=== PATIENT | male | born 1955 | race Caucasian/White ===

== ENCOUNTER 2017-09-15 15:10 | Outpatient (CLI) | payer OTHER, MEDICARE | END 2017-09-15 15:11 | disposition critical access hospital (66) | LOC: EMS 15:10 | PROVIDERS: ATTEND Surgery | DX: R53.1 Weakness (principal) | CPT/HCPCS: A0425; A0429 ==

== ENCOUNTER 2017-09-15 15:45 | Observation (INO) | payer OTHER, MEDICARE ==
--- NOTE | 2017-09-15 16:19 | CT Report ---
EXAM: CT HEAD EXAM DATE: 09/15/2017 04:01 PM. CLINICAL HISTORY: Stroke like symptoms since last night. Right-sided weakness this morning. COMPARISON: None. TECHNIQUE: Multiaxial CT images were obtained from the foramen magnum to the vertex. IV contrast: Non e. Reformats: Coronal. In accordance with CT protocol optimization, one or more of the following dose reduction techniques w ere utilized for this exam: automated exposure control, adjustment of mA and/or KV based on patient s ize, or use of iterative reconstructive technique. FINDINGS: Parenchyma: No intraparenchymal hemorrhage. Large area of inferior right frontal lobe encephalomalaci a with upper right frontal lobe white matter low density. No evidence of mass, midline shift, or CT f indings of acute infarction. Scanlon-white differentiation is distinct. Mild chronic microangiopathic wh ite matter changes are evident. Extraaxial Spaces: Normal for age. No subdural or epidural collections identified. Ventricles: The ventricles and cortical sulci are prominent, consistent with age-related tissue loss. Sinuses and orbits: Extensive opacity of the paranasal sinuses, sparing the left frontal and left max illary sinuses. The mastoids are clear. Bones: Right frontal craniotomy defect noted. Other: None. IMPRESSION: 1. Generalized age-related cortical atrophic changes without evidence of acute intracranial abnormali ty, noting right frontal craniotomy with extensive subjacent right frontal lobe encephalomalacia and white matter low-density. 2. Extensive sinusitis. [facility] The call report notification system was initiated by Dr. Montrell Robison at 16:12 hrs on 09/15/17. The above findings were discussed with Dr. Decker by Dr. Montrell Robison at 16:15 hrs on 09/15/17. Referring Provider Line: [phone] SITE ID: [id number]
[2017-09-15 16:44] LABS: BASOPHILS % (AUTO) 0.5 %; EOSINOPHILS # (AUTO) 0.1 10^3/uL (0.0-0.7); HCT - HEMATOCRIT 30.1 % (42.0-52.0); LYMPHOCYTES # (AUTO) 1.2 10^3/uL (1.5-3.5); LYMPHOCYTES % (AUTO) 39.3 %; MEAN CORPUSCULAR HEMOGLOBIN 20.7 pg (27.0-31.0); MEAN PLATELET VOLUME 8.2 fL (7.4-11.4); MONOCYTES # (AUTO) 0.2 10^3/uL (0.0-1.0); MONOCYTES % (AUTO) 7.5 %; NEUTROPHILS # (AUTO) 1.5 10^3/uL (1.5-6.6); NEUTROPHILS % (AUTO) 48.7 %; RED BLOOD COUNT 4.36 10^6/uL (4.70-6.10); RED CELL DISTRIBUTION WIDTH 24.9 % (12.0-15.0); UNCORRECTED WHITE BLOOD COUNT 3.2 x10^3/uL; WHITE BLOOD COUNT 3.2 x10^3/uL (4.8-10.8)
[2017-09-15 16:45] LABS: INR 1.4 (0.8-1.2); PT - PROTHROMBIN TIME 16.1 secs (9.9-12.6)
[2017-09-15 16:46] LABS: CALCIUM 8.2 mg/dL (8.5-10.3); CREATININE 0.9 mg/dL (0.6-1.2); POTASSIUM 2.9 mmol/L (3.5-5.0)
[2017-09-15 17:03] LABS: PLATELET ESTIMATE, MANUAL DECREASED (<130,000) (NORMAL); PLATELET MORPHOLOGY 1+ LARGE PLATELETS (NORMAL)
--- NOTE | 2017-09-15 17:09 | ED Physician Documentation ---
History of Present Illness - Stated complaint Stated Complaint: POSS CVA - Chief complaint Chief Complaint: Neuro - Additonal information Additional information: hx from pt 62 male hx R brain surgery for tumor and a L CVA declining X 6 months jaime confusion and incontinence states seen and evaluated an [facility] for same awoke today with R sided leg weakness no fall denies SÁNCHEZ neck pain CP AP NVD no fever cough NVD called [facility] and instructed to come to [facility] ED - trying to get records Review of Systems Constitutional: denies: Fever Cardiac: denies: Chest pain / pressure, Palpitations Respiratory: denies: Dyspnea, Cough GI: denies: Abdominal Pain, Nausea, Vomiting Neurologic: reports: Focal weakness (RLE), Difficulty speaking. denies: Headache, Head injury Endocrine: denies: Easy bruising / bleeding Immunocompromised: denies: Immunocompromised PD PAST MEDICAL HISTORY - Present Medications Home Medications: Ambulatory Orders Medication Instructions Recorded Confirmed Ascorbic Acid [Vitamin C] 1 tab PO DAILY 09/15/17 09/15/17 Aspirin Chewable [St Gonzalez 81 mg PO DAILY 09/15/17 09/15/17 Aspirin] Carvedilol 12.5 mg PO BID 09/15/17 09/15/17 Ferrous Sulfate 325 mg PO DAILY 09/15/17 09/15/17 Furosemide 40 mg PO DAILY 09/15/17 09/15/17 Hydrochlorothiazide 12.5 mg PO DAILY 09/15/17 09/15/17 Lansoprazole 30 mg PO DAILY 09/15/17 09/15/17 - Allergies Allergies/Adverse Reactions: Allergies Allergy/AdvReac Type Severity Reaction Status Date / Time Sulfa (Sulfonamide Allergy Unknown Verified 09/15/17 15:52 Antibiotics) PD ED PE NORMAL - Vitals Vital signs reviewed: Yes - General General: Other (alert interactive seems confused) - HEENT HEENT: Atraumatic, PERRL - Neck Neck: Supple, no meningeal sign - Cardiac Cardiac: RRR - Respiratory Respiratory: No respiratory distress, Clear bilaterally - Derm Derm: Normal color - Neuro Neuro: nurse reviewer 2-12 intact, No motor deficit, No sensory deficit, Normal speech, Other (at time of my eval NIHSS 0). No: Alert and oriented X 3 Eye Opening: Spontaneous Motor: Obeys Commands Verbal: Confused GCS Score: 14 Results - Vitals Vitals: Vital Signs - 24 hr 09/15/17 09/15/17 09/15/17 15:47 17:12 17:53 Temperature 36.2 C L 36.9 C Heart Rate 68 73 73 Respiratory 16 16 12 Rate Blood Pressure 132/76 H 113/62 105/51 L O2 Saturation 97 100 98 Oxygen O2 Source Room air - EKG (time done) 1611 Rate: Rate (enter#) (64) Rhythm: NSR Intervals: Prolonged QT (borderline) Ischemia: Non specific changes (flat T waves inf) - Labs Labs: Laboratory Tests 09/15/17 09/15/17 09/15/17 16:32 16:32 16:32 WBC 3.2 L RBC 4.36 L Hgb 9.0 L Hct 30.1 L MCV 69.0 L MCH 20.7 L MCHC 30.0 L RDW 24.9 H Plt Count 45 L MPV 8.2 Neut # 1.5 Lymph # 1.2 L [place] # 0.2 Eos # 0.1 Baso # 0.0 Absolute Nucleated RBC 0.00 Nucleated RBC % 0.0 Manual Slide Review Indicated Platelet Estimate DECREASED (<130,000) Platelet Morphology 1+ LARGE PLATELETS RBC Morph Micro Appear 1+ BASO STIPPLING PT 16.1 H INR 1.4 H Sodium 136 Potassium 2.9 L Chloride 103 Carbon Dioxide 27 Anion Gap 6.0 BUN 16 Creatinine 0.9 Estimated GFR (MDRD) 86 L Glucose 141 H Calcium 8.2 L - Rads (name of study) CTH Radiology: See rad report (prior R crani, no new infarct or bleed seen, extensive sinusitis) PD MEDICAL DECISION MAKING - ED course ED course: reviewed records from [facility] and MRI this summer showed no changes or new tumor pt with 2 processes it seems 1) gradual decline, being evaluated by his neuro 2 ) acute TIA sx today neg NIHSS and CT at this time also anemic, not new per [facility] records, and low K which is new and was repleted will admit for serial neuro exam and MRI / MRA echo etc paged hospitalist at 1810 Departure - Departure Disposition: ED Place in Observation Clinical Impression: TIA (transient ischemic attack) Qualifiers: Transient cerebral ischemia type: unspecified Qualified Code(s): G45.9 - Transient cerebral ischemic attack, unspecified Condition: Fair Discharge Date/Time: 09/15/17 20:02
[2017-09-15] MEDS ORDERED: POTASSIUM CHLORIDE 20 MEQ TABLET PO STA (17:33)
[2017-09-15] MEDS ORDERED: POTASSIUM CHLORIDE 20 MEQ TABLET PO ONE (17:55)
[2017-09-15] MEDS ORDERED: PROMETHAZINE 25 MG/1 ML VIAL IM PRN (19:38)
[2017-09-15] MEDS ORDERED: oxyCODONE 5 MG TABLET PO PRN ×2 (19:38)
[2017-09-15] MEDS ORDERED: PROCHLORPERAZINE 10 MG/2 ML VIAL IVP PRN (19:38)
[2017-09-15] MEDS ORDERED: SODIUM CHLORIDE FLUSH 0.9% 10 ML SYRINGE IVP PRN (19:38)
[2017-09-15] MEDS ORDERED: ACETAMINOPHEN 325 MG TABLET PO PRN (19:38)
[2017-09-15] MEDS ORDERED: ONDANSETRON 4 MG/2 ML VIAL IVP PRN (19:38)
[2017-09-15] MEDS ORDERED: ZOLPIDEM 5 MG TABLET PO PRN (19:38)
[2017-09-15] MEDS ORDERED: SODIUM CHLORIDE 0.9% 1,000 ML IV SCH (20:00)
[2017-09-15] MEDS: SODIUM CHLORIDE FLUSH 0.9% 10 ML SYRINGE IVP SCH (22:02)
[2017-09-15] MEDS: ATORVASTATIN 40 MG TABLET PO SCH (22:02)
[2017-09-15] MEDS: CARVEDILOL 12.5 MG TABLET PO SCH (22:02)
--- NOTE | 2017-09-16 01:37 | HISTORY & PHYSICAL EXAMINATION ---
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 The patient states that when he woke up this morning he felt as though his right leg and left arm were weaker than normal. The patient states that he does routine physical therapy exercises daily and today he states that he could only get through about half of them because he felt so weak. The patient states that he had difficulty lifting his right leg and difficulty lifting his left arm. The patient states that the strength in his legs and arms slowly improved throughout the day and by the time his called the ambulance he was actually able to get himself into the ambulance. The patient states that he did have similar symptoms a few months ago that did resolve and that he was evaluated at an outside hospital and thought to have had a TIA. The patient lives with his and it appears to have been deteriorating over the last several months. The patient was recently seen at [facility] on 08/10/2017 and at that time was having failure to thrive and of poor quality of life. It was discussed with him and his at that time of the idea of hospice and they were interested in with dignity. According to the patient's the patient has had a continued decline over the last several months. The patient is incontinent of urine, sleeps most of the day and night and often is awake at night more than during the day. He has no appetite he only eats if he is fed. The patient has no motivation to exercise and has began to have hard time reading due to his cognitive function and does not seem interested in exercise or watching TV. The patient was previously getting home PT 3 times a week but has since been discharged and now just does exercises himself at home. The patient does require assistance for showering. The patient was having frequent falls at home but is now better with a walker. The patient continues to have poor appetite and weight loss. The patient has poor quality of life and his is having more and more difficult of the time taking care of him. The patient otherwise denies any headache, blurred vision, runny nose, sore throat, nasal congestion, fevers, chills, neck pain, difficulty swallowing, chest pain, shortness of air, orthopnea, PND, increased lower extremity swelling , abdominal pain, nausea, vomiting, diarrhea, constipation, joint pain, joint swelling, muscle aches, muscle stiffness, back pain, neck stiffness, or any focal neurologic deficits. On presentation to the emergency department the patient was afebrile and vital signs are within normal limits. The patient's weakness had completely resolved. The patient underwent routine lab work which did reveal a slight leukopenia, thrombocytopenia and hypokalemia. The patient also had an anemia all of which appear to be chronic from his previous hospitalization at [facility]. The patient underwent a CT of his head which revealed generalized age- related cortical atrophic changes without evidence of acute intracranial abnormality, noting right frontal craniotomy with extensive subjacent right frontal lobe encephalomalacia and white matter low density with extensive sinusitis. The patient was placed in observation for further imaging and monitoring for possible TIA. History - Past Medical History Cardiovascular: reports: Hypertension Respiratory: reports: Pneumonia, CPAP use, Other (Obstructive sleep apnea) Neuro: reports: CVA, Other (Malignant neoplasm of the frontal lobe status post craniotomy, radiation encephalopathy) Endocrine/Autoimmune: reports: None GI: reports: Hepatitis (Hepatitis C), Cirrhosis (Liver cirrhosis secondary to hepatitis C and alcohol abuse with esophageal varices and portal hypertension) Psych: reports: None Musculoskeletal: reports: None Derm: reports: None Other Past Medical History: Anemia, Alcohol abuse, hyperlipidemia, impaired fasting glucose, lacunar stroke, depression, radiation encephalopathy, thrombocytopenia, cognitive impairment, degenerative joint disease, metabolic syndrome, urinary incontinence, tobacco abuse - Past Surgical History Neuro: reports: Craniotomy (Frontal lobe), Other - Family & Social History Family History: Mother: Cancer (Lung-mom Stomach-dad), Hypertension (PGF), Father: Cancer, Hypertension, Sister: Hypertension, Mental Illness, Brother: Asthma, Diabetes, Type 2 (PGF), Hypertension, Other family: Diabetes, Type 2, Hypertension Living arrangement: At home Living Situation: With spouse/s.o. Social History Notes: Patient lives with his . He is originally from [place] but has been living in [place], [place] on [address] for the past 30 years. Patient does not have any children. 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 The patient was part of a lot of major building projects in [place] and [place]. The patient is currently retired. He does smoke 1 pack per day and been smoking for the past 43 years. The patient does drink alcohol he states that he drinks about 4 shots of bourbon every night but has cut down as he was previously a heavy drinker. The patient denies any illicit drug use. The patient uses a walker at home and until recently was getting physical therapy 3 times a week. The patient does have history of falls but has been more stable since the physical therapy. The patient is having failure to thrive at home and his is having an incredibly difficult time caring for him. The patient and his have recently been considering the idea of palliative care or hospice as the patient's quality of life has been deteriorating over the last few months. - Substance History Use: Uses substance without health or social issues: Tobacco Abuse: Recurrent use of substance despite neg consequences: Alcohol - POLST Patient has POLST: No POLST Status: DNR Meds/Allgy - Home Medications Home Medications: Ambulatory Orders Medication Instructions Recorded Confirmed Ascorbic Acid [Vitamin C] 1 tab PO DAILY 09/15/17 09/15/17 Aspirin Chewable [St Gonzalez 81 mg PO DAILY 09/15/17 09/15/17 Aspirin] Carvedilol 12.5 mg PO BID 09/15/17 09/15/17 Ferrous Sulfate 325 mg PO DAILY 09/15/17 09/15/17 Furosemide 40 mg PO DAILY 09/15/17 09/15/17 Hydrochlorothiazide 12.5 mg PO DAILY 09/15/17 09/15/17 Lansoprazole 30 mg PO DAILY 09/15/17 09/15/17 - Allergies Allergies/Adverse Reactions: Allergies Allergy/AdvReac Type Severity Reaction Status Date / Time Sulfa (Sulfonamide Allergy Unknown Verified 09/15/17 15:52 Antibiotics) Review of Systems - Other Findings Other Findings: A comprehensive review of systems was performed the pertinent positives and negatives are stated above in the HPI and the remainder of the review of systems is negative. Exam - Vital Signs Reviewed Vital Signs: Yes Vital Signs: Vital Signs x48h Temp Pulse Resp BP Pulse Ox 09/16/17 00:05 36.4 C L 61 18 133/69 H 95 09/15/17 20:47 36.4 C L 66 20 138/51 H 100 - Physical Exam General Appearance: positive: No acute distress, Alert, Other (Appears to have some difficulty with memory especially of time and dates. Appears to have some cognitive decline) Eyes Bilateral: positive: Normal inspection, PERRL, EOMI, No lid inflammation, Conjunctivae nml, No scleral icterus ENT: positive: ENT inspection nml, Pharynx nml, No signs of dehydration. negative: Purulent nasal drainage, Pharyngeal erythema Neck: positive: Nml inspection, Thyroid nml, No JVD, Trachea midline. negative : Thyromegaly, Lymphadenopathy (R), Lymphadenopathy (L), Carotid bruit, Tracheal deviation Respiratory: positive: Chest non-tender, No respiratory distress, Breath sounds nml. negative: Wheezes, Rales, Rhonchi Cardiovascular: positive: Regular rate & rhythm, No murmur, No gallop Peripheral Pulses: positive: 2+ Abdomen: positive: Non-tender, No organomegaly, Nml bowel sounds, Other ( Distended abdomen). negative: Tenderness, Guarding, Rebound Back: positive: Nml inspection. negative: CVA tenderness (R), CVA tenderness (L ) Skin: positive: Color nml, No rash. negative: Cyanosis, Diaphoresis, Pallor Extremities: positive: Non-tender, Full ROM, Nml appearance, No pedal edema Neurologic/Psychiatric: positive: Oriented x3, CN's nml (2-12), Motor nml, Sensation nml, Mood/affect nml Conclusion/Plan - Problem List (1) TIA (transient ischemic attack) Conclusion/Plan: Patient presented with left arm and right leg weakness which had resolved by the time the patient presents to the emergency department. Patient's symptoms started earlier in the morning and progressed throughout the day while he was trying to do exercises at home. 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 The patient's CT head in the emergency department was negative but is being placed in observation for further imaging and neuro checks. Plan: Aspirin Lipitor MRA head and neck MRI brain Echo Lipid profile Tele [facility] Neurochecks PT and OT eval Qualifiers: Transient cerebral ischemia type: unspecified Qualified Code(s): G45.9 - Transient cerebral ischemic attack, unspecified (2) Hypokalemia Conclusion/Plan: Patient's potassium on presentation is 2.9. The patient does have chronic hypokalemia and is on Lasix at home. The patient is not on any potassium supplements along with the Lasix. The patient will be placed on potassium via IV and his Lasix will be held. We will continue to monitor patient's potassium (3) LINDA on CPAP Conclusion/Plan: Patient does have history of sleep apnea and is on CPAP at home Patient will be continued on home CPAP machine (4) Hypertension Conclusion/Plan: Patient has history of hypertension and is on antihypertensive medication at home. Patient's blood pressure was stable on presentation. Patient be continued on his home antihypertensives Patient will have his blood pressure monitored while he is hospitalized. We will allow for permissive hypertension as patient may have had a TIA. Qualifiers: Hypertension type: essential hypertension Qualified Code(s): I10 - Essential (primary) hypertension (5) Liver cirrhosis Conclusion/Plan: Patient has history of liver cirrhosis with esophageal varices and portal hypertension. The etiology of his liver cirrhosis is alcohol abuse and hepatitis C. The patient is not a transplant candidate given his alcohol abuse and otherwise poor quality of life due to his malignant neoplasm of the brain status post craniotomy with radiation encephalopathy. The patient has been having failure to thrive over the last several months and is considering palliative care or hospice options with his . Plan: We will refer the patient to palliative care and have Stephany LUNA see the patient in the hospital if possible otherwise patient will need to be seen as an outpatient. (6) Tobacco abuse Conclusion/Plan: Patient continues to smoke despite history of cancer. Patient smokes 1 pack a day and has been smoking since the age of 19. Plan: Patient was counseled on need to quit smoking and has been given a nicotine patch while he is hospitalized. (7) Failure to thrive Conclusion/Plan: Patient has been having failure to thrive over the last several months. He has had decreased appetite and has been losing weight. The patient also has increasing confusion due to his radiation encephalopathy and likely also has some component of hepatic encephalopathy given his liver cirrhosis. The patient does have terminal diagnosis in his liver cirrhosis we do not have LFTs to calculate out a meld to see if he does have a life expectancy of less than 6 months but the patient definitely would benefit from palliative care consult and likely will need hospice in the future. The patient does want to be DNR and has considered with dignity. Qualifiers: Failure to thrive age range: in adult Qualified Code(s): R62.7 - Adult failure to thrive - Lab Results Lab results reviewed: Yes Fish Bones: 09/15/17 16:32 09/15/17 16:32 Other Lab Results: Laboratory Results WBC 3.2 x10^3/uL (4.8-10.8) L 09/15/17 16:32 RBC 4.36 10^6/uL (4.70-6.10) L 09/15/17 16:32 Hgb 9.0 g/dL (14.0-18.0) L 09/15/17 16: Hct 30.1 % (42.0-52.0) L 09/15/17 16: MCV 69.0 fL (80.0-94.0) L 09/15/17 16: MCH 20.7 pg (27.0-31.0) L 09/15/17 16:32 MCHC 30.0 g/dL (32.0-36.0) L 09/15/17 16:32 RDW 24.9 % (12.0-15.0) H 09/15/17 16:32 Plt Count 45 10^3/uL (130-450) L 09/15/17 16:32 MPV 8.2 fL (7.4-11.4) 09/15/17 16:32 Neut # 1.5 10^3/uL (1.5-6.6) 09/15/17 16:32 Lymph # 1.2 10^3/uL (1.5-3.5) L 09/15/17 16:32 [place] # 0.2 10^3/uL (0.0-1.0) 09/15/17 16:32 Eos # 0.1 10^3/uL (0.0-0.7) 09/15/17 16:32 Baso # 0.0 10^3/uL (0.0-0.1) 09/15/17 16:32 Absolute Nucleated RBC 0.00 x10^3/uL 09/15/17 16:32 Nucleated RBC % 0.0 /100WBC 09/15/17 16:32 Manual Slide Review Indicated 09/15/17 16:32 Platelet Estimate DECREASED (<130,000) (NORMAL) 09/15/17 16:32 Platelet Morphology 1+ LARGE PLATELETS (NORMAL) 09/15/17 16:32 RBC Morph Micro Appear 3+ ANISOCYTOSIS (NORMAL) 1+ POLYCHROMASIA (NORMAL) 1 + HYPOCHROMASIA (NORMAL) 2+ MICROCYTOSIS (NORMAL) 1+ OVALOCYTES (NORMAL) 1+ BASO STIPPLING (NORMAL) 09/15/17 16:32 RBC Morph Micro Appear 3+ ANISOCYTOSIS (NORMAL) 1+ POLYCHROMASIA (NORMAL) 1 + HYPOCHROMASIA (NORMAL) 2+ MICROCYTOSIS (NORMAL) 1+ OVALOCYTES (NORMAL) 1+ BASO STIPPLING (NORMAL) 09/15/17 16:32 RBC Morph Micro Appear 3+ ANISOCYTOSIS (NORMAL) 1+ POLYCHROMASIA (NORMAL) 1 + HYPOCHROMASIA (NORMAL) 2+ MICROCYTOSIS (NORMAL) 1+ OVALOCYTES (NORMAL) 1+ BASO STIPPLING (NORMAL) 09/15/17 16:32 RBC Morph Micro Appear 3+ ANISOCYTOSIS (NORMAL) 1+ POLYCHROMASIA (NORMAL) 1 + HYPOCHROMASIA (NORMAL) 2+ MICROCYTOSIS (NORMAL) 1+ OVALOCYTES (NORMAL) 1+ BASO STIPPLING (NORMAL) 09/15/17 16:32 RBC Morph Micro Appear 3+ ANISOCYTOSIS (NORMAL) 1+ POLYCHROMASIA (NORMAL) 1 + HYPOCHROMASIA (NORMAL) 2+ MICROCYTOSIS (NORMAL) 1+ OVALOCYTES (NORMAL) 1+ BASO STIPPLING (NORMAL) 09/15/17 16:32 RBC Morph Micro Appear 3+ ANISOCYTOSIS (NORMAL) 1+ POLYCHROMASIA (NORMAL) 1 + HYPOCHROMASIA (NORMAL) 2+ MICROCYTOSIS (NORMAL) 1+ OVALOCYTES (NORMAL) 1+ BASO STIPPLING (NORMAL) 09/15/17 16:32 PT 16.1 secs (9.9-12.6) H 09/15/17 16:32 INR 1.4 (0.8-1.2) H 09/15/17 16:32 Sodium 136 mmol/L (135-145) 09/15/17 16:32 Potassium 2.9 mmol/L (3.5-5.0) L 09/15/17 16:32 Chloride 103 mmol/L (101-111) 09/15/17 16:32 Carbon Dioxide 27 mmol/L (21-32) 09/15/17 16:32 Anion Gap 6.0 (6-13) 09/15/17 16:32 BUN 16 mg/dL (6-20) 09/15/17 16:32 Creatinine 0.9 mg/dL (0.6-1.2) 09/15/17 16:32 Estimated GFR (MDRD) 86 (>89) L 09/15/17 16:32 Glucose 141 mg/dL (70-100) H 09/15/17 16:32 Calcium 8.2 mg/dL (8.5-10.3) L 09/15/17 16:32 - Diagnostic Imaging Results Diagnostic Imaging Results: positive: Final report reviewed Diagnostic Imaging Results Comments: CT head Impression: 1. Generalized age-related cortical atrophic changes without evidence of acute intracranial abnormality, noting a right frontal craniotomy with extensive subjacent right frontal lobe encephalomalacia and white matter low density. 2. Extensive sinusitis - EKG Results EKG Interpreted Independently: Yes EKG Findings: No ST elevations or ischemic changes noted. Issues/Core Measures - Anticipated LOS Anticipated Stay Length: 2 or more midnights - DVT/VTE - Prophylaxis VTE/DVT Device ordered at admit?: Yes
[2017-09-16] MEDS: NS W/20 MEQ KCL 1,000 ML IV SCH ×3 (05:31→21:15)
[2017-09-16] MEDS: SODIUM CHLORIDE FLUSH 0.9% 10 ML SYRINGE IVP SCH ×3 (05:33→17:29)
[2017-09-16] MEDS: NICOTINE 21 MG PATCH TOP SCH ×2 (05:34→10:03)
[2017-09-16 06:15] LABS: INR 1.4 (0.8-1.2); PT - PROTHROMBIN TIME 15.6 secs (9.9-12.6)
[2017-09-16 06:16] LABS: BASOPHILS # (AUTO) 0.1 10^3/uL (0.0-0.1); BASOPHILS % (AUTO) 4.6 %; EOSINOPHILS # (AUTO) 0.1 10^3/uL (0.0-0.7); EOSINOPHILS % (AUTO) 4.9 %; HCT - HEMATOCRIT 29.8 % (42.0-52.0); HGB - HEMOGLOBIN 8.9 g/dL (14.0-18.0); LYMPHOCYTES # (AUTO) 1.4 10^3/uL (1.5-3.5); LYMPHOCYTES % (AUTO) 50.6 %; MEAN CORPUSCULAR HEMOGLOBIN 20.6 pg (27.0-31.0); MEAN CORPUSCULAR HGB CONC 29.7 g/dL (32.0-36.0); MEAN CORPUSCULAR VOLUME 69.4 fL (80.0-94.0); MEAN PLATELET VOLUME 8.4 fL (7.4-11.4); MONOCYTES # (AUTO) 0.2 10^3/uL (0.0-1.0); MONOCYTES % (AUTO) 6.7 %; NEUTROPHILS # (AUTO) 0.9 10^3/uL (1.5-6.6); NEUTROPHILS % (AUTO) 33.2 %; NUCLEATED RED BLOOD CELLS AUTO 0.3 /100WBC; UNCORRECTED WHITE BLOOD COUNT 2.8 x10^3/uL; WHITE BLOOD COUNT 2.8 x10^3/uL (4.8-10.8)
[2017-09-16 06:23] LABS: ALBUMIN/GLOBULIN RATIO 0.7 (1.0-2.2); BILIRUBIN,TOTAL 1.2 mg/dL (0.2-1.0); CALCIUM 7.9 mg/dL (8.5-10.3); CREATININE 0.8 mg/dL (0.6-1.2); TOTAL PROTEIN 5.8 g/dL (6.7-8.2)
[2017-09-16 06:28] LABS: CHOL/HDL RATIO 4.3 (<5.0); CHOLESTEROL 95 mg/dL; HDL CHOLESTEROL 22 mg/dL; LDL/HDL RATIO 2.7 (<3.6); TRIGLYCERIDES 66 mg/dL; VLDL CHOLESTEROL 13 mg/dL
[2017-09-16 06:30] LABS: HEMOGLOBIN A1C 0.31 g/dL
[2017-09-16 06:35] LABS: PLATELET ESTIMATE, MANUAL DECREASED (<130,000) (NORMAL); PLATELET MORPHOLOGY NORMAL APPEARANCE (NORMAL)
[2017-09-16] MEDS ORDERED: GADOBUTROL 10 MMOL/10 ML VIAL ONE (07:48)
[2017-09-16] MEDS: ASPIRIN CHEW 81 MG TABLET PO SCH (09:41)
[2017-09-16] MEDS: CARVEDILOL 12.5 MG TABLET PO SCH ×2 (09:41→21:11)
[2017-09-16] MEDS: FAMOTIDINE 20 MG TABLET PO SCH (09:41)
[2017-09-16] MEDS: FERROUS SULFATE 325 MG TABLET PO SCH (09:43)
[2017-09-16] MEDS: hydroCHLOROthiazide 12.5 MG CAPSULE PO SCH (09:48)
[2017-09-16] MEDS: POLYETHYLENE GLYCOL 3350 17 GM PACKET PO SCH (10:02)
--- NOTE | 2017-09-16 12:57 | MRI Preliminary Report ---
Exam: MRI BRAIN W/O IMPRESSION: 1. No MRI evidence for acute intracranial abnormality on this mildly motion limited study. 2. Severe multifocal paranasal sinus disease/opacity. 3. Findings are consistent with chronic sequelae of prior right frontal brain surgery. 4. There is extensive abnormal cerebral T2 hyperintense signal changes, especially prominent in the r egion of prior surgery. These changes are nonspecific and may be related to previous treatment. There may be a component of chronic gliosis from microangiopathy. In the correct clinical setting, infiltr ative primary brain tumor could have a similar appearance. [facility] SITE ID: [id number]
--- NOTE | 2017-09-16 13:00 | MRI Preliminary Report ---
Exam: MRI ANGIO BRAIN W/O (MRA) IMPRESSION: 1.Incomplete and technically limited head MRA especially at the level of the [place] of [place]. 2. No evidence for significant arterial deficiency in the posterior circulation. 3. Very limited evaluation of arterial flow in the regions of the anterior and middle cerebral arteri es. [facility] SITE ID: [id number]
--- NOTE | 2017-09-16 13:03 | MRI Preliminary Report ---
Exam: MRI ANGIO NECK W/O (MRA) IMPRESSION: 1. Significantly motion limited study. 2. The cervical vertebral and carotid arteries are patent bilaterally. 3. Limited evaluation of the cervical carotid arteries. Marked image distortion by motion artifact. H igh-grade stenosis however is considered unlikely. 4. Consider thyroid ultrasound follow-up for apparent 2 cm lesion in the right lobe of the thyroid gl and. [facility] SITE ID: [id number]
--- NOTE | 2017-09-16 13:07 | MRI Report ---
EXAM: MRI BRAIN WITHOUT CONTRAST EXAM DATE: 09/16/2017 12:31 PM. CLINICAL HISTORY: TIA, history of CVA. COMPARISON: CT of the head without contrast 09/15/2017. TECHNIQUE: Multiplanar, multisequence T1-weighted and fluid-sensitive MR sequences of the brain were performed. Sequences optimized for routine evaluation. Other: None. IV Contrast: None. FINDINGS: Beneath a chronic appearing right frontal craniotomy there is a large fluid-containing intracranial s pace consistent with a surgical resection cavity that measures about 5 x 3.5 cm transverse. There is extensive amorphous abnormal T2 hyperintensity in the right anterior cerebral hemisphere yvon und the region of previous surgery. Similar but less extensive findings are seen more posteriorly on the right and in the anterior left frontal lobe. There is no evidence for associated mass effect. No restricted diffusion is seen to suggest acute or recent ischemic infarct. No acute hemorrhage. Mild chronic right frontal perioperative hemosiderin staining. No midline shift. Mild generalized cerebral volume loss. Mild chronic-appearing ventriculomegaly, mor e likely from atrophy than hydrocephalus. Multiple images of the study are motion limited. Again seen are findings of confluent opacity of the right frontal and right maxillary sinuses and the ethmoid and sphenoid sinuses. IMPRESSION: 1. No MRI evidence for acute intracranial abnormality on this mildly motion limited study. 2. Severe multifocal paranasal sinus disease/opacity. 3. Findings are consistent with chronic sequelae of right frontal brain surgery. 4. There is extensive abnormal cerebral T2 hyperintense signal changes, especially prominent in the r egion of prior surgery. These changes are nonspecific and may be related to previous treatment. There may be a component of chronic gliosis and microangiopathy. In the correct clinical setting, infiltra tive primary brain tumor could have a similar appearance. [facility] Referring Provider Line: [phone] SITE ID: [id number]
--- NOTE | 2017-09-16 13:07 | MRI Report ---
EXAM MRA BRAIN EXAM DATE: 09/16/2017 11:58 AM. CLINICAL HISTORY: TIA. Report of stroke symptoms. COMPARISON: None. TECHNIQUE: Multiplanar, multisequence MRA sequences of the brain were performed. Other: None. Post-pr ocessing: Multiplanar 3D MIP reconstructions. IV Contrast: None. FINDINGS: This screening [place] MRA is significantly motion limited especially added above the level of the [place]. There is no evidence for intracranial vertebrobasilar insufficiency and the distal internal carotid arteries are patent. Arterial flow signal is present in the proximal posterio r cerebral arteries. Indistinct arterial flow signal is present discontinuously in the regions of the proximal segments of the anterior and middle cerebral arteries. These vessels cannot be considered t o have been fully evaluated, however. Significant arterial flow signal loss suggestive of imaging art ifact is present at the level of the [place]. IMPRESSION: 1.Incomplete and technically limited head MRA especially at the level of the [place]. 2. No evidence for significant arterial deficiency in the posterior circulation. 3. Very limited evaluation of arterial flow in the regions of the anterior and middle cerebral arteri es. [facility] Referring Provider Line: [phone] SITE ID: [id number]
--- NOTE | 2017-09-16 14:39 | MRI Report ---
EXAM: MR ANGIOGRAM NECK EXAM DATE: 09/16/2017 11:46 AM. CLINICAL HISTORY: TIA, history of stroke. COMPARISON: None. TECHNIQUE: Multiplanar, multisequence MRA sequences of the neck were performed. Other: None. Post-pro cessing: Multiplanar 3D MIP reconstructions. IV Contrast: Without. Evaluation of arterial stenosis i s based on a NASCET method of measurement. FINDINGS: Motion-limited unenhanced screening neck MRA using 3-D [id number] technique. Arterial flow signal is present as expected in the regions of the cervical vertebral and carotid christopher rebecca bilaterally. In the mid neck, the contours of the carotid arteries at and distal to the carotid bifurcations are s everely distorted by motion artifact with extensive stairstep artifact on the 3-D reconstructions. Re view of the source images, however, does not clearly demonstrate findings that are highly likely to b e associated with acute abnormality or hemodynamically significant stenosis. The flow voids of the vertebral and carotid arteries in the neck are present. 2 cm nonspecific mass or masslike lesion of the right lobe of the thyroid gland. IMPRESSION: 1. Significantly motion-limited study. 2. The cervical vertebral and carotid arteries are patent bilaterally. 3. Limited evaluation of the cervical carotid arteries. Marked image distortion by motion artifact. H igh-grade stenosis, however, is considered unlikely. 4. Consider thyroid ultrasound follow-up for apparent 2 cm lesion in the right lobe of the thyroid gl and. [facility] Referring Provider Line: [phone] SITE ID: [id number]
--- NOTE | 2017-09-16 16:21 | PROVIDER PROGRESS NOTE ---
Subjective - Prog Note Date Prog Note Date: 09/16/17 - Subjective Pt reports feeling: Improved Subjective: pt state he feel much better, TIA symptoms is resolved. Current Medications - Current Medications Current Medications: Active Medications Acetaminophen (Tylenol) 650 mg PO Q4HR PRN PRN Reason: Pain 1 to 4 Aspirin ([place] Aspirin) 81 mg PO DAILY [facility] Last Admin: 09/17/17 08:44 Dose: 81 mg Atorvastatin Calcium (Lipitor) 80 mg PO QPM [facility] Last Admin: 09/16/17 21:12 Dose: 80 mg Calcium Citrate () 250 mg PO DAILY [facility] Last Admin: 09/17/17 08:44 Dose: 250 mg Carvedilol (Coreg) 12.5 mg PO BID [facility] Last Admin: 09/17/17 08:44 Dose: 12.5 mg Famotidine (Pepcid) 20 mg PO DAILY [facility] Last Admin: 09/17/17 08:44 Dose: 20 mg Ferrous Sulfate (Feosol) 325 mg PO DAILY [facility] Last Admin: 09/17/17 08:44 Dose: 325 mg Hydrochlorothiazide (Hydrodiuril) 12.5 mg PO DAILY [facility] Last Admin: 09/17/17 08:44 Dose: 12.5 mg Potassium Chloride/Sodium Chloride (Normal Saline 0.9% W/20 Meq Kcl) 1,000 mls @ 125 mls/hr IV .Q8H [facility] Last Admin: 09/17/17 04:15 Dose: Not Given Nicotine (Nicoderm) 1 patch TOP DAILY [facility] Last Admin: 09/17/17 08:53 Dose: Not Given Ondansetron HCl (Zofran Inj) 4 mg IVP Q6HR PRN PRN Reason: Nausea / Vomiting Oxycodone HCl (Roxicodone) 5 mg PO Q4HR PRN PRN Reason: Pain 5 to 7 Oxycodone HCl (Roxicodone) 10 mg PO Q4HR PRN PRN Reason: Pain 8 to 10 Polyethylene Glycol (Miralax) 17 gm PO DAILY [facility] Last Admin: 09/16/17 10:02 Dose: Not Given Prochlorperazine Edisylate (Compazine Inj) 10 mg IVP Q6HR PRN PRN Reason: Nausea / Vomiting Promethazine HCl (Phenergan Inj) 25 mg IM Q6HR PRN PRN Reason: Nausea / Vomiting Sodium Chloride (Normal Saline Flush 0.9%) 10 ml IVP PRN PRN PRN Reason: NEEDED PER PROVIDER ORDERS Sodium Chloride (Normal Saline Flush 0.9%) 10 ml IVP Q8HR [facility] Last Admin: 09/17/17 05:47 Dose: Not Given Zolpidem Tartrate (Ambien) 5 mg PO QPM PRN PRN Reason: Insomnia Last Admin: 09/16/17 23:44 Dose: 5 mg Ascorbic Acid [Vitamin C] 500 mg PO QPM 09/15/17 Aspirin Chewable [[facility] [place] Aspirin] 81 mg PO DAILY 09/15/17 Carvedilol 12.5 mg PO BID 09/15/17 Ferrous Sulfate 325 mg PO QPM 09/15/17 Furosemide 40 mg PO DAILY 09/15/17 Hydrochlorothiazide 12.5 mg PO DAILY 09/15/17 Lansoprazole 30 mg PO QDAC 09/15/17 Solifenacin Succinate [Vesicare] 5 mg PO DAILY 09/16/17 Objective - Vital Signs/Intake & Output Reviewed Vital Signs: Yes Vital Signs: Vital Signs x48h Temp Pulse Resp BP Pulse Ox 09/16/17 13:00 36.6 C 71 19 119/68 98 09/16/17 09:00 64 18 124/65 95 Intake & Output: Intake & Output 09/13/17 09/14/17 09/15/17 09/16/17 23:59 23:59 23:59 23:59 Intake Total 200 2900 Balance 200 2900 - Objective General Appearance: positive: No acute distress, Alert. negative: Lethargic Eyes Bilateral: positive: Normal inspection, PERRL, No lid inflammation, Conjunctivae nml ENT: positive: ENT inspection nml, Pharynx nml, No signs of dehydration. negative: Purulent nasal drainage, Pharyngeal erythema, Oral lesions, Dry mucous membranes Neck: positive: Nml inspection, Thyroid nml, Trachea midline. negative: Thyromegaly, Lymphadenopathy (R), Lymphadenopathy (L), Stiff neck, Carotid bruit , Swelling/bruising, Tracheal deviation Respiratory: positive: Chest non-tender, No respiratory distress, Breath sounds nml. negative: Wheezes, Rales, Rhonchi Cardiovascular: positive: Regular rate & rhythm, No murmur, No gallop. negative : Irregularly irregular, Extrasystoles, Tachycardia, Bradycardia, Systolic murmur, Diastolic murmur Peripheral Pulses: 2+ Radial (R), 2+ Radial (L), 2+ Dorsalis pedis (R), 2+ Dorsalis pedis (L) Abdomen: positive: Non-tender, No organomegaly, Nml bowel sounds, No distention. negative: Tenderness, Guarding, Rebound Back: positive: Nml inspection. negative: CVA tenderness (R), CVA tenderness (L ) Skin: positive: Color nml, No rash, Warm, Dry. negative: Cyanosis, Diaphoresis , Pallor, Skin rash Extremities: positive: Non-tender, Full ROM, Nml appearance. negative: Calf tenderness, Joint swelling, Vasquez's sign/cords Neurologic/Psychiatric: positive: Motor nml, Sensation nml. negative: Weakness , Sensory loss, Facial droop, Slurred/abnml speech, Depressed mood/affect - Lab Results Fish Bones: 09/17/17 06:30 09/17/17 06:30 Other Labs: Lab Results x24hrs 09/16/17 09/16/17 09/16/17 Range/Units 05:00 05:00 05:00 WBC (4.8-10.8) x10^3/uL RBC (4.70-6.10) 10^6/uL Hgb (14.0-18.0) g/dL Hct (42.0-52.0) % MCV (80.0-94.0) fL MCH (27.0-31.0) pg MCHC (32.0-36.0) g/dL RDW (12.0-15.0) % Plt Count (130-450) 10^3/uL MPV (7.4-11.4) fL Neut # (1.5-6.6) 10^3/uL Lymph # (1.5-3.5) 10^3/uL [place] # (0.0-1.0) 10^3/uL Eos # (0.0-0.7) 10^3/uL Baso # (0.0-0.1) 10^3/uL Absolute Nucleated RBC x10^3/uL Nucleated RBC % /100WBC Manual Slide Review Platelet Estimate (NORMAL) Platelet Morphology (NORMAL) RBC Morph Micro Appear (NORMAL) PT (9.9-12.6) secs INR (0.8-1.2) Sodium 137 (135-145) mmol/L Potassium 4.0 (3.5-5.0) mmol/L Chloride 105 (101-111) mmol/L Carbon Dioxide 24 (21-32) mmol/L Anion Gap 8.0 (6-13) BUN 13 (6-20) mg/dL Creatinine 0.8 (0.6-1.2) mg/dL Estimated GFR (MDRD) 98 (>89) Glucose 104 H (70-100) mg/dL Glycated Hemoglobin 5.2 (4.6-6.2) % Estim Average Glucose 103 H (70-100) Calcium 7.9 L (8.5-10.3) mg/dL Total Bilirubin 1.2 H (0.2-1.0) mg/dL AST 157 H (10-42) IU/L ALT 82 H (10-60) IU/L Alkaline Phosphatase 66 (42-121) IU/L Total Protein 5.8 L (6.7-8.2) g/dL Albumin 2.4 L (3.2-5.5) g/dL Globulin 3.4 (2.1-4.2) g/dL Albumin/Globulin Ratio 0.7 L (1.0-2.2) Triglycerides 66 ( - 149) mg/dL Cholesterol 95 ( - 199) mg/dL LDL Cholesterol, Calc 60 ( - 129) mg/dL VLDL Cholesterol 13 mg/dL HDL Cholesterol 22 L (60 - ) mg/dL LDL/HDL Ratio 2.7 (<3.6) Cholesterol/HDL Ratio 4.3 (<5.0) 09/16/17 09/16/17 Range/Units 05:00 05:00 WBC 2.8 L (4.8-10.8) x10^3/uL RBC 4.30 L (4.70-6.10) 10^6/uL Hgb 8.9 L (14.0-18.0) g/dL Hct 29.8 L (42.0-52.0) % MCV 69.4 L (80.0-94.0) fL MCH 20.6 L (27.0-31.0) pg MCHC 29.7 L (32.0-36.0) g/dL RDW 26.0 H (12.0-15.0) % Plt Count 41 L (130-450) 10^3/uL MPV 8.4 (7.4-11.4) fL Neut # 0.9 L (1.5-6.6) 10^3/uL Lymph # 1.4 L (1.5-3.5) 10^3/uL [place] # 0.2 (0.0-1.0) 10^3/uL Eos # 0.1 (0.0-0.7) 10^3/uL Baso # 0.1 (0.0-0.1) 10^3/uL Absolute Nucleated RBC 0.01 x10^3/uL Nucleated RBC % 0.3 /100WBC Manual Slide Review Indicated Platelet Estimate DECREASED (<130,000) (NORMAL) Platelet Morphology NORMAL APPEARANCE (NORMAL) RBC Morph Micro Appear 3+ ANISOCYTOSIS (NORMAL) PT 15.6 H (9.9-12.6) secs INR 1.4 H (0.8-1.2) Sodium (135-145) mmol/L Potassium (3.5-5.0) mmol/L Chloride (101-111) mmol/L Carbon Dioxide (21-32) mmol/L Anion Gap (6-13) BUN (6-20) mg/dL Creatinine (0.6-1.2) mg/dL Estimated GFR (MDRD) (>89) Glucose (70-100) mg/dL Glycated Hemoglobin (4.6-6.2) % Estim Average Glucose (70-100) Calcium (8.5-10.3) mg/dL Total Bilirubin (0.2-1.0) mg/dL AST (10-42) IU/L ALT (10-60) IU/L Alkaline Phosphatase (42-121) IU/L Total Protein (6.7-8.2) g/dL Albumin (3.2-5.5) g/dL Globulin (2.1-4.2) g/dL Albumin/Globulin Ratio (1.0-2.2) Triglycerides ( - 149) mg/dL Cholesterol ( - 199) mg/dL LDL Cholesterol, Calc ( - 129) mg/dL VLDL Cholesterol mg/dL HDL Cholesterol (60 - ) mg/dL LDL/HDL Ratio (<3.6) Cholesterol/HDL Ratio (<5.0) Assessment/Plan - Problem List (1) TIA (transient ischemic attack) Impression: (1) TIA (transient ischemic attack) Conclusion/Plan: pt report his TIA symptoms resolved test result reviewed, and discussed with pt and pt's , questions are answered continue current treatment tele,vital, daily monitor Patient presented with left arm and right leg weakness which had resolved by the time the patient presents to the emergency department. Patient's symptoms started earlier in the morning and progressed throughout the day while he was trying to do exercises at home. 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 The patient's CT head in the emergency department was negative but is being placed in observation for further imaging and neuro checks. Plan: Aspirin Lipitor MRA head and neck MRI brain Echo Lipid profile Tele [facility] Neurochecks PT and OT eval Qualifiers: Transient cerebral ischemia type: unspecified Qualified Code(s): G45.9 - Transient cerebral ischemic attack, unspecified (2) Hypokalemia Conclusion/Plan: resolved continue daily lab monitor Patient's potassium on presentation is 2.9. The patient does have chronic hypokalemia and is on Lasix at home. The patient is not on any potassium supplements along with the Lasix. The patient will be placed on potassium via IV and his Lasix will be held. We will continue to monitor patient's potassium (3) LINDA on CPAP Conclusion/Plan: continue home CPAP Patient does have history of sleep apnea and is on CPAP at home Patient will be continued on home CPAP machine (4) Hypertension Conclusion/Plan: stable, continue current BP meds Patient has history of hypertension and is on antihypertensive medication at home. Patient's blood pressure was stable on presentation. Patient be continued on his home antihypertensives Patient will have his blood pressure monitored while he is hospitalized. We will allow for permissive hypertension as patient may have had a TIA. Qualifiers: Hypertension type: essential hypertension Qualified Code(s): I10 - Essential (primary) hypertension (5) Liver cirrhosis Conclusion/Plan: called Stephany, and she will discuss with pt and his continue support and lab test, vital monitor Patient has history of liver cirrhosis with esophageal varices and portal hypertension. The etiology of his liver cirrhosis is alcohol abuse and hepatitis C. The patient is not a transplant candidate given his alcohol abuse and otherwise poor quality of life due to his malignant neoplasm of the brain status post craniotomy with radiation encephalopathy. The patient has been having failure to thrive over the last several months and is considering palliative care or hospice options with his . Plan: We will refer the patient to palliative care and have Stephany LUNA see the patient in the hospital if possible otherwise patient will need to be seen as an outpatient. (6) Tobacco abuse Conclusion/Plan: ot is advised to quit smoking Patient continues to smoke despite history of cancer. Patient smokes 1 pack a day and has been smoking since the age of 19. Plan: Patient was counseled on need to quit smoking and has been given a nicotine patch while he is hospitalized. (7) Failure to thrive Conclusion/Plan: multiple co-mobility/mortality, consult with palliative care, will follow up continue support, and treatment Patient has been having failure to thrive over the last several months. He has had decreased appetite and has been losing weight. The patient also has increasing confusion due to his radiation encephalopathy and likely also has some component of hepatic encephalopathy given his liver cirrhosis. The patient does have terminal diagnosis in his liver cirrhosis we do not have LFTs to calculate out a meld to see if he does have a life expectancy of less than 6 months but the patient definitely would benefit from palliative care consult and likely will need hospice in the future. The patient does want to be DNR and has considered with dignity. (8) sinusitis CT and MRI indicate pt has sinusitis rocephin IV consider to continue antibiotics course aft D/C Qualifiers: Transient cerebral ischemia type: unspecified Qualified Code(s): G45.9 - Transient cerebral ischemic attack, unspecified
--- NOTE | 2017-09-16 19:27 | CONSULTATION NOTE ---
Palliative Care Consultation - Referral Referring Provider: Magnus LUNA Time of Visit: [id number] Referral setting: Hospitalized patient Referral Reason: Goals of Care/Failure to Thrive - Information Sources Records reviewed: RN notes reviewed, Previous records reviewed History/Review of Systems obtained from: Family ( provided history) Exam limitations: Clinical condition (patient with little insight or comment on current situation; defers and deflects questioning to ) - History of Present Illness Brief History of Present Illness: This is a 62-year-old gentleman who has had a failure to thrive presentation over the last several weeks to months. He has a significant past history of astrocytoma status post craniotomy, radiation. This is added to the complexity of patient's hepatitis C, he has failed treatment now twice, and has increasing viral load. His understanding was expected limited life expectancy and his original diagnosis 6-1/2 years ago, unfortunately he also had a lacunar stroke after his surgery. Her understanding is that long-term survival is about 8% but does reflect on the poor quality of life outcome related to his current situation. He is experiencing the sequela though of radiation encephalopathy, cognitive decline, and most recently progressive functional decline. His cirrhosis is also attributed to alcohol abuse, with esophageal varices and portal hypertension though he does not present high on the MELD score of 11. This calculates out for 90 day mortality at 0.07%. He was admitted regarding concern for symptoms of a TIA with right leg and left arm weakness that worsened through the day, prompting a visit to the ED for work up , these have since resolved. This craniotomy was frontal lobe, he does have some wandering behaviors, intermittent agitation if challenged particularly around smoking, but no reported hallucinations or delusions. He was recently trialed on sertraline, without response and actually worsening symptoms. He has sleep apnea and wears a CPAP at night. He is has not had history of seizures, no on any sedating medications, though sleeps for most of the day. His current quality of life is somewhat limited, patient is able to only participate somewhat in his decision-making, he is now needing 24 hour supervision, and recently his has hired a caregiver. The patient is mostly homebound, he does walk outside to smoke, he has cut back from 1 pack per day to about a 1/3 pack. He spends most of his day sleeping and/or watching TV, he no longer is able to read. Patient himself presents with affable and social interaction, but does defer and deflect direct questioning, unclear if patient and able to participate in the conversation or choosing to not engage. 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, radiation encephalopathy) Endocrine/Autoimmune: reports: None GI: reports: Hepatitis (Hepatitis C), Cirrhosis (Liver cirrhosis secondary to hepatitis C and alcohol abuse with esophageal varices and portal hypertension) : reports: Incontinence Psych: reports: None Musculoskeletal: reports: None Derm: reports: None Other Past Medical History: Anemia, Alcohol abuse, hyperlipidemia, impaired fasting glucose, lacunar stroke, depression, radiation encephalopathy, thrombocytopenia, cognitive impairment, degenerative joint disease, metabolic syndrome, urinary incontinence, tobacco abuse - Past Surgical History Neuro: reports: Craniotomy (Frontal lobe), Other - Substance History Use: Uses substance without health or social issues: Tobacco Abuse: Recurrent use of substance despite neg consequences: Alcohol Social History - Living Situation Living arrangement: At home Living Situation: With spouse/s.o. 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 He has been on disability. His Sherie, his continued to work, she is weighing benefits and burdens of retiring at this time. She has recently been on 6 weeks sabbatical to help care for him, and now has hired some caregiving support. Family History - Family History Family History: Mother: (esophageal cancer/cad; mother of emphasema), Father: Medications/Allergies - Medications Active Medication List: Active Medications Acetaminophen (Tylenol) 650 mg PO Q4HR PRN PRN Reason: Pain 1 to 4 Aspirin ([facility] Gonzalez Aspirin) 81 mg PO DAILY [facility] Last Admin: 09/16/17 09:41 Dose: 81 mg Atorvastatin Calcium (Lipitor) 80 mg PO QPM [facility] Last Admin: 09/15/17 22:02 Dose: 80 mg Carvedilol (Coreg) 12.5 mg PO BID [facility] Last Admin: 09/16/17 09:41 Dose: 12.5 mg Famotidine (Pepcid) 20 mg PO DAILY [facility] Last Admin: 09/16/17 09:41 Dose: 20 mg Ferrous Sulfate (Feosol) 325 mg PO DAILY [facility] Last Admin: 09/16/17 09:43 Dose: 325 mg Hydrochlorothiazide (Hydrodiuril) 12.5 mg PO DAILY [facility] Last Admin: 09/16/17 09:48 Dose: 12.5 mg Potassium Chloride/Sodium Chloride (Normal Saline 0.9% W/20 Meq Kcl) 1,000 mls @ 125 mls/hr IV .Q8H [facility] Last Admin: 09/16/17 14:50 Dose: 125 mls/hr Nicotine (Nicoderm) 1 patch TOP DAILY [facility] Last Admin: 09/16/17 10:03 Dose: Not Given Ondansetron HCl (Zofran Inj) 4 mg IVP Q6HR PRN PRN Reason: Nausea / Vomiting Oxycodone HCl (Roxicodone) 5 mg PO Q4HR PRN PRN Reason: Pain 5 to 7 Oxycodone HCl (Roxicodone) 10 mg PO Q4HR PRN PRN Reason: Pain 8 to 10 Polyethylene Glycol (Miralax) 17 gm PO DAILY [facility] Last Admin: 09/16/17 10:02 Dose: Not Given Prochlorperazine Edisylate (Compazine Inj) 10 mg IVP Q6HR PRN PRN Reason: Nausea / Vomiting Promethazine HCl (Phenergan Inj) 25 mg IM Q6HR PRN PRN Reason: Nausea / Vomiting Sodium Chloride (Normal Saline Flush 0.9%) 10 ml IVP PRN PRN PRN Reason: NEEDED PER PROVIDER ORDERS Sodium Chloride (Normal Saline Flush 0.9%) 10 ml IVP Q8HR [facility] Last Admin: 09/16/17 17:29 Dose: Not Given Zolpidem Tartrate (Ambien) 5 mg PO QPM PRN PRN Reason: Insomnia Ascorbic Acid [Vitamin C] 500 mg PO QPM 09/15/17 Aspirin Chewable [St Gonzalez Aspirin] 81 mg PO DAILY 09/15/17 Carvedilol 12.5 mg PO BID 09/15/17 Ferrous Sulfate 325 mg PO QPM 09/15/17 Furosemide 40 mg PO DAILY 09/15/17 Hydrochlorothiazide 12.5 mg PO DAILY 09/15/17 Lansoprazole 30 mg PO QDAC 09/15/17 Solifenacin Succinate [Vesicare] 5 mg PO DAILY 09/16/17 - Allergies Allergies/Adverse Reactions: Allergies Allergy/AdvReac Type Severity Reaction Status Date / Time Sulfa (Sulfonamide Allergy Unknown Verified 09/15/17 15:52 Antibiotics) amlodipine AdvReac Nausea Verified 09/16/17 20:19 diltiazem AdvReac Nausea Verified 09/16/17 20:20 fluoxetine AdvReac Unknown Verified 09/16/17 20:19 Review of Systems - Constitutional Constitutional: reports: Fatigue, Malaise, Weakness, Weight loss ( reports 13 pounds) - Eyes Eyes: denies: Vision loss - Ears, Nose & Throat Ears, Nose & Throat: reports: Postnasal drainage, Other (some difficulty with swallowing) - Cardiovascular Cardiovascular: reports: Decr. exercise tolerance - Respiratory Respiratory: reports: Cough - Gastrointestinal Gastrointestinal: denies: Nausea - Genitourinary Genitourinary: reports: Incontinence (intermittent and flucutating;) - Musculoskeletal Musculoskeletal: reports: Muscle weakness - Neurological Neurological: reports: Memory problems - Psychiatric Psychiatric: reports: Behavior disturbances (can be confrontive). denies: Delusions, Hallucinations - Endocrine Endocrine: denies: Hypothyroidism - Hematologic/Lymphatic Hematologic/Lymphatic: reports: Anemia - All Other Systems All Other Systems: reports: Reviewed and negative - Other Findings Other Findings: ROS supplemented by Physical Exam - Vital Signs Vital Signs: Vital Signs x48h Temp Pulse Resp BP Pulse Ox 09/16/17 16:17 36.4 C L 61 18 128/66 99 09/16/17 13:00 36.6 C 71 19 119/68 98 - Physical Exam General Appearance: positive: No acute distress. negative: Anxious Eyes Bilateral: positive: Normal inspection ENT: positive: No signs of dehydration Neck: positive: Trachea midline Cardiovascular: positive: Regular rate & rhythm Respiratory: positive: Diminished in bases Abdomen: positive: Soft, Nml bowel sounds, Other (rounded) Skin: positive: Pallor, Dryness Extremities: positive: No pedal edema, Other (has scds on) Neurologic/Psychiatric: positive: Mood/affect nml Palliative Care - POLST Patient has POLST: Yes POLST Status: DNR, Limited Interventions Pain: No pain Sleep: Variable sleep pattern Performance Status: Patient has previously been able to manage his own dressing and is ambulating in the house without an assistive device. Has significant risk regarding both decision-making secondary cognitive deficits and generalized weakness high risk for falling. Previous home health notes indicate has difficulty with balance and balance loss. He does use a 4 wheeled walker outside. Patient perception is he did improve some with therapy support, he has participated in the past and outpatient therapy. Patient per is not motivated to sustain any exercise program or prolonged activity, unclear if this is mood related or patient's limitations. - Palliative Care Discussion: Family conference with Sherie, they have been for about 30 years. She has been caregiving for several years now, and more intensely over the last several months. Is struggling with the complexity of his increasing care needs, concern for his ongoing decline, and also the ambiguity and lack of information for prognostication. Patient is at high risk for recurrence of his astrocytoma and is somewhat of a surprise he is past six years, as of yet has not as best we know recurred. Though there is some concern in examining MRI findings. Discussed her past experiences with hospice, she did have support for her father through his dying process, and is hopeful and end-of-life to be able to support patient in his home setting or an alternative such as [facility]. In reviewing the continuum of care, if he continues decline in the context of his radiation encephalopathy and progressive dementia, this may be a slower declining moving towards end of life. Discussed the role of palliative care particularly as patient has functional decline, evaluating for progressive disease and or deterioration, and transitioning to hospice at the appropriate time.Also reviewed the role of hospice, the criteria given patient does need a definitive six-month diagnosis and goals to be focused on comfort. Declined to have me follow up with hospice medical affairs director at this point to see if he meets criteria, will reach out after she has had time to process information and evaluate his status over the next few weeks of what might be of help in the future. Has POLST with DNAR/Limited Interventions already completed. Results - Lab Results Lab results reviewed: Yes Fish Bones: 09/16/17 05:00 09/16/17 05:00 Lab and Imaging Results: Lab Results x24hrs 09/16/17 09/16/17 09/16/17 Range/Units 05:00 05:00 05:00 WBC (4.8-10.8) x10^3/uL RBC (4.70-6.10) 10^6/uL Hgb (14.0-18.0) g/dL Hct (42.0-52.0) % MCV (80.0-94.0) fL MCH (27.0-31.0) pg MCHC (32.0-36.0) g/dL RDW (12.0-15.0) % Plt Count (130-450) 10^3/uL MPV (7.4-11.4) fL Neut # (1.5-6.6) 10^3/uL Lymph # (1.5-3.5) 10^3/uL Quay # (0.0-1.0) 10^3/uL Eos # (0.0-0.7) 10^3/uL Baso # (0.0-0.1) 10^3/uL Absolute Nucleated RBC x10^3/uL Nucleated RBC % /100WBC Manual Slide Review Platelet Estimate (NORMAL) Platelet Morphology (NORMAL) RBC Morph Micro Appear (NORMAL) PT (9.9-12.6) secs INR (0.8-1.2) Sodium 137 (135-145) mmol/L Potassium 4.0 (3.5-5.0) mmol/L Chloride 105 (101-111) mmol/L Carbon Dioxide 24 (21-32) mmol/L Anion Gap 8.0 (6-13) BUN 13 (6-20) mg/dL Creatinine 0.8 (0.6-1.2) mg/dL Estimated GFR (MDRD) 98 (>89) Glucose 104 H (70-100) mg/dL Glycated Hemoglobin 5.2 (4.6-6.2) % Estim Average Glucose 103 H (70-100) Calcium 7.9 L (8.5-10.3) mg/dL Total Bilirubin 1.2 H (0.2-1.0) mg/dL AST 157 H (10-42) IU/L ALT 82 H (10-60) IU/L Alkaline Phosphatase 66 (42-121) IU/L Total Protein 5.8 L (6.7-8.2) g/dL Albumin 2.4 L (3.2-5.5) g/dL Globulin 3.4 (2.1-4.2) g/dL Albumin/Globulin Ratio 0.7 L (1.0-2.2) Triglycerides 66 ( - 149) mg/dL Cholesterol 95 ( - 199) mg/dL LDL Cholesterol, Calc 60 ( - 129) mg/dL VLDL Cholesterol 13 mg/dL HDL Cholesterol 22 L (60 - ) mg/dL LDL/HDL Ratio 2.7 (<3.6) Cholesterol/HDL Ratio 4.3 (<5.0) 09/16/17 09/16/17 Range/Units 05:00 05:00 WBC 2.8 L (4.8-10.8) x10^3/uL RBC 4.30 L (4.70-6.10) 10^6/uL Hgb 8.9 L (14.0-18.0) g/dL Hct 29.8 L (42.0-52.0) % MCV 69.4 L (80.0-94.0) fL MCH 20.6 L (27.0-31.0) pg MCHC 29.7 L (32.0-36.0) g/dL RDW 26.0 H (12.0-15.0) % Plt Count 41 L (130-450) 10^3/uL MPV 8.4 (7.4-11.4) fL Neut # 0.9 L (1.5-6.6) 10^3/uL Lymph # 1.4 L (1.5-3.5) 10^3/uL Quay # 0.2 (0.0-1.0) 10^3/uL Eos # 0.1 (0.0-0.7) 10^3/uL Baso # 0.1 (0.0-0.1) 10^3/uL Absolute Nucleated RBC 0.01 x10^3/uL Nucleated RBC % 0.3 /100WBC Manual Slide Review Indicated Platelet Estimate DECREASED (<130,000) (NORMAL) Platelet Morphology NORMAL APPEARANCE (NORMAL) RBC Morph Micro Appear 3+ ANISOCYTOSIS (NORMAL) PT 15.6 H (9.9-12.6) secs INR 1.4 H (0.8-1.2) Sodium (135-145) mmol/L Potassium (3.5-5.0) mmol/L Chloride (101-111) mmol/L Carbon Dioxide (21-32) mmol/L Anion Gap (6-13) BUN (6-20) mg/dL Creatinine (0.6-1.2) mg/dL Estimated GFR (MDRD) (>89) Glucose (70-100) mg/dL Glycated Hemoglobin (4.6-6.2) % Estim Average Glucose (70-100) Calcium (8.5-10.3) mg/dL Total Bilirubin (0.2-1.0) mg/dL AST (10-42) IU/L ALT (10-60) IU/L Alkaline Phosphatase (42-121) IU/L Total Protein (6.7-8.2) g/dL Albumin (3.2-5.5) g/dL Globulin (2.1-4.2) g/dL Albumin/Globulin Ratio (1.0-2.2) Triglycerides ( - 149) mg/dL Cholesterol ( - 199) mg/dL LDL Cholesterol, Calc ( - 129) mg/dL VLDL Cholesterol mg/dL HDL Cholesterol (60 - ) mg/dL LDL/HDL Ratio (<3.6) Cholesterol/HDL Ratio (<5.0) Impression and Recommendations - Palliative Care Impression: This is a 62-year-old gentleman who presented with concern for acute symptoms of a TIA, this is been ruled out at this point in time. In the context of patient's ongoing and larger complex care needs, patient does present with symptoms of failure to thrive, functional decline, and significant comorbidities of hepatitis C/alcoholic cirrhosis and status post craniotomy for astrocytoma, and radiation encephalopathy. Goals of care include focusing on quality of life issues and decreasing caregiver burden. Recommendations/Counseling Done: 1. Failure to thrive. This is multifactorial in origin. Patient does present with functional decline, meld score of 11 in the setting of alcoholic/viral hepatitis C, weight loss, hypokalemia, sinusitis, and malnutrition, and poor quality of life. Have recently undergone an attempt at rehab therapies in the home setting, patient's perception is that it did improve some, perceives it was short term and gains not sustainable with patient unable to follow through. In the context of her conversation, my understanding is the focus will be on safety, supporting patient's wish to be at home, and evaluate current status in the context being able to meet his needs with increased caregiving support. 2. Advanced care planning. is DUR[employer] POWER OF SEATING CAPTAIN for healthcare, she is looking at working with further follow-through on long-term plans and legal issues. If patient needs more jail care, weighing benefits of burdens of a SNF placement in [place] has friend who has similar situation and is working well for her, if patient declines further and/or has defined recurrent disease will consider hospice support. Encouraged to reach out to Palliative Care if patient unable to leave the home or would like ongoing support, contact information given. Educated on hospice criteria, support, and goals of care and transition points. Time Spent: Time spent 75 minutes with greater than 50% of this done in counseling regarding goals of care, anticipatory guidance, education on hospice transition points, and coordination of care with hospitalist.
[2017-09-16] MEDS ORDERED: cefTRIAXone 1 GM VIAL IVP SCH (19:32)
[2017-09-16] MEDS: ATORVASTATIN 40 MG TABLET PO SCH (21:12)
[2017-09-17] MEDS: NS W/20 MEQ KCL 1,000 ML IV SCH (04:15)
[2017-09-17] MEDS: SODIUM CHLORIDE FLUSH 0.9% 10 ML SYRINGE IVP SCH (05:47)
[2017-09-17 06:42] LABS: BASOPHILS # (AUTO) 0.2 10^3/uL (0.0-0.1); BASOPHILS % (AUTO) 5.3 %; EOSINOPHILS # (AUTO) 0.2 10^3/uL (0.0-0.7); EOSINOPHILS % (AUTO) 5.2 %; HCT - HEMATOCRIT 31.7 % (42.0-52.0); HGB - HEMOGLOBIN 9.4 g/dL (14.0-18.0); INR 1.4 (0.8-1.2); LYMPHOCYTES # (AUTO) 0.8 10^3/uL (1.5-3.5); LYMPHOCYTES % (AUTO) 22.1 %; MEAN CORPUSCULAR HGB CONC 29.6 g/dL (32.0-36.0); MEAN PLATELET VOLUME 8.1 fL (7.4-11.4); MONOCYTES # (AUTO) 0.3 10^3/uL (0.0-1.0); MONOCYTES % (AUTO) 7.2 %; NEUTROPHILS # (AUTO) 2.3 10^3/uL (1.5-6.6); NEUTROPHILS % (AUTO) 60.2 %; PT - PROTHROMBIN TIME 15.7 secs (9.9-12.6); RED BLOOD COUNT 4.46 10^6/uL (4.70-6.10); UNCORRECTED WHITE BLOOD COUNT 3.7 x10^3/uL; WHITE BLOOD COUNT 3.7 x10^3/uL (4.8-10.8)
[2017-09-17 06:55] LABS: ALBUMIN/GLOBULIN RATIO 0.7 (1.0-2.2); BILIRUBIN,TOTAL 1.2 mg/dL (0.2-1.0); CALCIUM 7.8 mg/dL (8.5-10.3); CREATININE 0.9 mg/dL (0.6-1.2); POTASSIUM 4.1 mmol/L (3.5-5.0); TOTAL PROTEIN 6.1 g/dL (6.7-8.2)
[2017-09-17 07:03] LABS: PLATELET ESTIMATE, MANUAL DECREASED (<130,000) (NORMAL)
[2017-09-17] MEDS ORDERED: CALCIUM CITRATE 250 MG TABLET PO SCH (08:00)
[2017-09-17] MEDS: FAMOTIDINE 20 MG TABLET PO SCH (08:44)
[2017-09-17] MEDS: hydroCHLOROthiazide 12.5 MG CAPSULE PO SCH (08:44)
[2017-09-17] MEDS: ASPIRIN CHEW 81 MG TABLET PO SCH (08:44)
[2017-09-17] MEDS: FERROUS SULFATE 325 MG TABLET PO SCH (08:44)
[2017-09-17] MEDS: CARVEDILOL 12.5 MG TABLET PO SCH (08:44)
[2017-09-17] MEDS: POLYETHYLENE GLYCOL 3350 17 GM PACKET PO SCH (08:45)
[2017-09-17] MEDS: NICOTINE 21 MG PATCH TOP SCH (08:53)
[2017-09-17] MEDS ORDERED: cefTRIAXone 1 GM VIAL IVP SCH (09:00)
--- NOTE | 2017-09-17 10:52 | Discharge Plan ---
Discharge Plan Disposition: Home, Self Care Condition: Stable Prescriptions: Amox/Clav 500/125 [Augmentin] 1 each PO Q12H #12 tablet Diet: Regular Activity Restrictions: Activity as Tolerated Shower Restrictions: No Weight Bearing: Full Weight Additional Instructions or Follow Up instructions: may follow up PCP in one week Follow-Up Care: [facility] [place] [facility] - Medical No Smoking: If you smoke, Please STOP! Call for help. Follow-up with: Sami Salgado [Primary Care Provider] -
--- NOTE | 2017-09-17 11:04 | DISCHARGE SUMMARY ---
Discharge Summary Admit Date: 09/15/17 Discharge Date: 09/17/17 Discharging Provider: GORDILLO Primary Care Provider: Sami Vargas Condition at Discharge: Stable Discharge Disposition: 01 Home, Self Care Discharge Facility Name: home - DIAGNOSES Admission Diagnoses: (1) TIA (transient ischemic attack) (2) Hypokalemia (3) LINDA on CPAP (4) Hypertension (5) Liver cirrhosis (6) Tobacco abuse (7) Failure to thrive (8) sinusitis Discharge Diagnoses with Status of Each Condition: (1) TIA (transient ischemic attack) resolved (2) Hypokalemia resolved (3) LINDA on CPAP chronic, continue CPAP as needed (4) Hypertension stable, continue manage (5) Liver cirrhosis stable, continue manage (6) Tobacco abuse advise pt quit (7) Failure to thrive consult with palliative care, continue support as needed (8) sinusitis treated with antibiotics and continue to have antibiotics course - HPI History of Present Illness: please refer from Dr. 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 The patient states that when he woke up this morning he felt as though his right leg and left arm were weaker than normal. The patient states that he does routine physical therapy exercises daily and today he states that he could only get through about half of them because he felt so weak. The patient states that he had difficulty lifting his right leg and difficulty lifting his left arm. The patient states that the strength in his legs and arms slowly improved throughout the day and by the time his called the ambulance he was actually able to get himself into the ambulance. The patient states that he did have similar symptoms a few months ago that did resolve and that he was evaluated at an outside hospital and thought to have had a TIA. The patient lives with his and it appears to have been deteriorating over the last several months. The patient was recently seen at [facility] on 08/10/2017 and at that time was having failure to thrive and of poor quality of life. It was discussed with him and his at that time of the idea of hospice and they were interested in with dignity. According to the patient's the patient has had a continued decline over the last several months. The patient is incontinent of urine, sleeps most of the day and night and often is awake at night more than during the day. He has no appetite he only eats if he is fed. The patient has no motivation to exercise and has began to have hard time reading due to his cognitive function and does not seem interested in exercise or watching TV. The patient was previously getting home PT 3 times a week but has since been discharged and now just does exercises himself at home. The patient does require assistance for showering. The patient was having frequent falls at home but is now better with a walker. The patient continues to have poor appetite and weight loss. The patient has poor quality of life and his is having more and more difficult of the time taking care of him. The patient otherwise denies any headache, blurred vision, runny nose, sore throat, nasal congestion, fevers, chills, neck pain, difficulty swallowing, chest pain, shortness of air, orthopnea, PND, increased lower extremity swelling , abdominal pain, nausea, vomiting, diarrhea, constipation, joint pain, joint swelling, muscle aches, muscle stiffness, back pain, neck stiffness, or any focal neurologic deficits. On presentation to the emergency department the patient was afebrile and vital signs are within normal limits. The patient's weakness had completely resolved. The patient underwent routine lab work which did reveal a slight leukopenia, thrombocytopenia and hypokalemia. The patient also had an anemia all of which appear to be chronic from his previous hospitalization at [facility]. The patient underwent a CT of his head which revealed generalized age- related cortical atrophic changes without evidence of acute intracranial abnormality, noting right frontal craniotomy with extensive subjacent right frontal lobe encephalomalacia and white matter low density with extensive sinusitis. The patient was placed in observation for further imaging and monitoring for possible - HOSPITAL COURSE Hospital Course: pt was admitted for TIA. TIA symptoms resolved quickly in the hospital. CT and MRI of head and neck/head MRA reveals no acute CVA or hemorrhagic, or significant blockage. ECHO indicates no significant changing. All test results are informed and are discussed with pt and his , all questions are answered. - ALLERGIES Allergies/Adverse Reactions: Allergies Allergy/AdvReac Type Severity Reaction Status Date / Time Sulfa (Sulfonamide Allergy Unknown Verified 09/15/17 15:52 Antibiotics) amlodipine AdvReac Nausea Verified 09/16/17 20:19 diltiazem AdvReac Nausea Verified 09/16/17 20:20 fluoxetine AdvReac Unknown Verified 09/16/17 20:19 - MEDICATIONS Home Medications: Ambulatory Orders Medication Instructions Recorded Confirmed Ascorbic Acid [Vitamin C] 500 mg PO QPM 09/15/17 09/16/17 Aspirin Chewable [[facility] 81 mg PO DAILY 09/15/17 09/16/17 Aspirin] Carvedilol 12.5 mg PO BID 09/15/17 09/16/17 Ferrous Sulfate 325 mg PO QPM 09/15/17 09/16/17 Furosemide 40 mg PO DAILY 09/15/17 09/16/17 Hydrochlorothiazide 12.5 mg PO DAILY 09/15/17 09/16/17 Lansoprazole 30 mg PO QDAC 09/15/17 09/16/17 Solifenacin Succinate [Vesicare] 5 mg PO DAILY 09/16/17 09/16/17 Amox/Clav 500/125 [Augmentin] 1 each PO Q12H #12 tablet 09/17/17 - PHYSICAL EXAM AT DISCHARGE General Appearance: positive: No acute distress, Alert. negative: Lethargic Eyes Bilateral: positive: Normal inspection, PERRL, No lid inflammation, Conjunctivae nml ENT: positive: ENT inspection nml, Pharynx nml, No signs of dehydration. negative: Purulent nasal drainage, Pharyngeal erythema, Oral lesions Neck: positive: Nml inspection, Thyroid nml, Trachea midline. negative: Thyromegaly, Lymphadenopathy (R), Lymphadenopathy (L), Stiff neck, Carotid bruit , Swelling/bruising, Tracheal deviation Respiratory: positive: Chest non-tender, No respiratory distress, Breath sounds nml. negative: Wheezes, Rales, Rhonchi Cardiovascular: positive: Regular rate & rhythm, No murmur, No gallop. negative : Irregularly irregular, Extrasystoles, Tachycardia, Bradycardia, Systolic murmur, Diastolic murmur Peripheral Pulses: positive: 2+ Abdomen: positive: Non-tender, No organomegaly, Nml bowel sounds, No distention. negative: Tenderness, Guarding, Rebound Back: positive: Nml inspection. negative: CVA tenderness (R), CVA tenderness (L ) Skin: positive: Color nml, No rash, Warm, Dry. negative: Cyanosis, Diaphoresis , Pallor Extremities: positive: Non-tender, Full ROM, Nml appearance. negative: Calf tenderness, Joint swelling, Vasquez's sign/cords Neurologic/Psychiatric: positive: Motor nml, Sensation nml. negative: Sensory loss, Facial droop, Slurred/abnml speech, Depressed mood/affect - LABS Result Diagrams: 09/17/17 06:30 09/17/17 06:30 - FOLLOW UP Follow Up: pt is advised to follow up PCP in one week. Pt is prescribed Augmentin to finish his antibiotics course for his sinusitis.
[2017-09-17 12:15] VITALS: BP 145/68
== END 2017-09-17 12:20 | disposition home or self-care (01) ==
LOC: EDUNIT# → ED 15:45 → OBS 19:39
PROVIDERS: ADMIT Internal Medicine; ATTEND Nurse Practitioner Gerontology
DX: G45.9 Transient cerebral ischemic attack, unspecified (principal); Z86.73 Personal history of transient ischemic attack (TIA), and cerebral infarction without residual deficits; E87.6 Hypokalemia; G47.33 Obstructive sleep apnea (adult) (pediatric); I10 Essential (primary) hypertension; R62.7 Adult failure to thrive; J32.9 Chronic sinusitis, unspecified; Z51.5 Encounter for palliative care; G93.89 Other specified disorders of brain; K70.30 Alcoholic cirrhosis of liver without ascites; B19.20 Unspecified viral hepatitis C without hepatic coma; K76.6 Portal hypertension; I85.10 Secondary esophageal varices without bleeding; F10.10 Alcohol abuse, uncomplicated; E78.5 Hyperlipidemia, unspecified; D64.9 Anemia, unspecified; D69.6 Thrombocytopenia, unspecified; E46 Unspecified protein-calorie malnutrition; F03.90 Unspecified dementia, unspecified severity, without behavioral disturbance, psychotic disturbance, mood disturbance, and anxiety; R32 Unspecified urinary incontinence; E88.81 Metabolic syndrome and other insulin resistance; Z72.0 Tobacco use; Z71.6 Tobacco abuse counseling; Z66 Do not resuscitate; Z91.81 History of falling; Z79.82 Long term (current) use of aspirin; Z85.841 Personal history of malignant neoplasm of brain; Z68.33 Body mass index [BMI] 33.0-33.9, adult
CPT/HCPCS: 36415; 70450; 70544; 70547; 70551; 80048; 80053; 80061; 83036; 85025; 85610; 93005; 93306; 96360; 96361; 99218; 99223; 99284; A9270; 99285